=== PATIENT | female | born 1970 | race Caucasian/White ===

== ENCOUNTER 2017-10-24 17:07 | Emergency (ER) | payer SELFPAY ==
[~2017-10-24] VITALS: Wt 93.0 kg
[~2017-10-24 17:07] MED LIST: ACYCLOVIR400 MG PO; ATARAX25 MG PO; CLARITIN10 MG PO; CORTISPORIN 1%-10 M1 OT; KEFLEX500 MG PO; KENALOG0.1% TP; KENALOG0.11 TP; LOTRISONE 0.05%1 CRE T; MEDROL DOSEPAK4 MG PO; NORCO 325 MG-51 TAB PO; NYSTATIN CREAM15 GM T; PREDNICOT10 MG PO; PREDNICOT20 MG PO; SEPTRA DS 800 M1 TAB PO; TOBREX OPHTH S2.5 ML OPH; TRIMOX500 MG PO
[2017-10-24] MEDS ORDERED: PREDNISONE10 MG PO (17:14)
== END 2017-10-24 17:24 | disposition home or self-care (01) ==
LOC: ED 17:07
DX: L30.9 Dermatitis, unspecified (principal); R03.0 Elevated blood-pressure reading, without diagnosis of hypertension